=== PATIENT | male | born 1985 | race Two or more races ===

== ENCOUNTER 2024-11-14 09:59 | Emergency (ER) | payer OTHER ==
[~2024-11-14] VITALS: Ht 177.8 cm; Wt 86.2 kg
[2024-11-14] MEDS ORDERED: ACETAMINOPHEN 500 MG GEL..CAP PO ONE (12:30)
[2024-11-14 13:16] LABS: HEMATOCRIT 39.8 % (39.0-48.0); HEMOGLOBIN 13.5 g/dL (13-16.00); MEAN CELL VOLUME 90.6 fL (80.0-100.00); MEAN CORPUSCULAR HEMOGLOBIN 30.7 pg (27.00-32.0); MEAN CORPUSCULAR HGB CONC 33.9 g/dl (32.0-36.0); PLATELET COUNT 307 K/uL (150-450); RED CELL DISTRIBUTION WIDTH 13.4 % (11.5-14.5)
[2024-11-14 13:37] LABS: ALBUMIN 4.4 gm/dL (3.4-5.0); BILIRUBIN TOTAL 0.67 mg/dL (0.3-1.2); CALCIUM 9.5 mg/dL (8.5-10.1); CREATININE SERUM 1.03 mg/dL (0.70-1.30); GFR 80.4; GLOBULINA 4.8 G/DL (2.4-3.5); POTASSIUM 4.05 mEq/L (3.5-5.1); TOTAL PROTEIN 9.2 gm/dL (6.4-8.2)
[2024-11-14 13:55] LABS: URINE APPEARANCE Clear; URINE BILIRRUBIN Negative (NEGATIVE); URINE BLOOD Negative; URINE COLOR Yellow; URINE GLUCOSE Negative (NEGATIVE); URINE LEUKOCYTE Negative; URINE NITRATE Negative; URINE PROTEIN Negative (NEGATIVE); URINE UROBILINOGEN 0.2 E.U./dl
[2024-11-14 13:56] LABS: URINE BACTERIA 12.2 uL (0.0-1933); URINE RBC 11.9 uL (0.0-20.8); URINE WBC 2.5 uL (0.0-23.2)
[2024-11-14 15:44] LABS: URINE EPITHELIAL CELLS 1.2 uL (0.0-38.8); URINE KETONE 40 (NEGATIVE)
[2024-11-14] MEDS ORDERED: ACETAMINOPHEN WITH CODEINE 1 UDTAB TABLET PO ONE (17:00)
== END 2024-11-14 17:54 | disposition home or self-care (01) ==
LOC: ER 10:02
PROVIDERS: Emergency Medicine
DX: K40.90 Unilateral inguinal hernia, without obstruction or gangrene, not specified as recurrent (principal)

== ENCOUNTER 2024-12-12 07:19 | Day surgery (SDC) | payer OTHER ==
[2024-12-08 08:45] LABS: URINE APPEARANCE Clear; URINE BILIRRUBIN Negative (NEGATIVE); URINE BLOOD Negative; URINE COLOR Yellow; URINE GLUCOSE Negative (NEGATIVE); URINE KETONE Negative (NEGATIVE); URINE LEUKOCYTE Negative; URINE NITRATE Negative; URINE PROTEIN Negative (NEGATIVE)
[2024-12-08 08:46] LABS: HEMATOCRIT 38.2 % (39.0-48.0); HEMOGLOBIN 13.1 g/dL (13-16.00); MEAN CELL VOLUME 90.5 fL (80.0-100.00); MEAN CORPUSCULAR HGB CONC 34.3 g/dl (32.0-36.0); PLATELET COUNT 307 K/uL (150-450); RED BLOOD COUNT 4.22 M/uL (4.00-6.00); RED CELL DISTRIBUTION WIDTH 13.3 % (11.5-14.5)
[2024-12-08 08:49] LABS: URINE EPITHELIAL CELLS 1.8 uL (0.0-38.8); URINE RBC 14.1 uL (0.0-20.8)
[2024-12-08 09:03] LABS: INR 1.05; PARTIAL THROMBOPLASTIN TIME 29.3 SECONDS (22.0-34.0); PROTHROMBIN TIME 11.4 SECONDS (9.0-11.5)
[2024-12-08 09:38] LABS: ALBUMIN 4.4 gm/dL (3.4-5.0); BILIRUBIN TOTAL 0.58 mg/dL (0.3-1.2); CALCIUM 9.2 mg/dL (8.5-10.1); CREATININE SERUM 1.01 mg/dL (0.70-1.30); GFR 82.24; POTASSIUM 4.12 mEq/L (3.5-5.1); TOTAL PROTEIN 8.4 gm/dL (6.4-8.2)
[2024-12-12] MEDS ORDERED: CEFAZOLIN SODIUM 1,000 MG VIAL ONE (09:51)
[2024-12-12] MEDS ORDERED: CEFAZOLIN SODIUM 1,000 MG VIAL IV ONE (10:45)
[2024-12-12] MEDS ORDERED: SUGAMMADEX SODIUM 200 MG/2 ML VIAL IV ONE ×2 (12:10→12:30)
[2024-12-12] MEDS ORDERED: MORPHINE SULFATE 4 MG/ML VIAL IV ONE ×2 (13:30→14:00)
[2024-12-12] MEDS ORDERED: ENALAPRILAT DIHYDRATE 1.25 MG/ML VIAL IV ONE ×2 (14:20→14:30)
== END 2024-12-12 15:50 | disposition home or self-care (01) ==
LOC: CIR.AMB 07:19
PROVIDERS: ATTEND Surgery
DX: K40.30 Unilateral inguinal hernia, with obstruction, without gangrene, not specified as recurrent (principal); K43.9 Ventral hernia without obstruction or gangrene; J44.9 Chronic obstructive pulmonary disease, unspecified
CPT/HCPCS: 49507; 49593; C1781